=== PATIENT | female | born 1980 | race Caucasian/White ===

== ENCOUNTER 2019-05-25 18:19 | Emergency (ER) | payer OTHER, SELFPAY ==
[2019-05-25 18:56] VITALS: BP 150/97; PULSE 103; RESP 16; TEMP 36.6; O2SAT 99
--- NOTE | 2019-05-25 19:01 | ED.BACK ---
HPI - Back Pain/Injury General Chief Complaint: Back Pain/Injury Stated Complaint: back pain Time Seen by Provider: 05/25/19 19:01 Source: patient and family History of Present Illness HPI Narrative: Patient presents with low back pain. Patient denies any numbness or tingling denies any radiation of pain. Patient states 2 weeks ago she moved and thinks she must have pulled a muscle at that time moving heavy boxes. Patient denies any saddle anesthesia, denies any bowel or bladder problems. Patient is taking ibuprofen for pain with minimal relief. MD elicited complaint: back pain Pertinent past history: prior back pain Similar Symptoms Previously: Yes Related Data Allergies Allergy/AdvReac Type Severity Reaction Status Date / Time No Known Allergies Allergy Unverified 10/21/18 19:42 Review of Systems Review of Systems: Narrative: CONSTITUTIONAL: Denies fever, chills, or sweats. EYES: Denies visual changes, redness, or discharge. ENT: Denies rhinorrhea, congestion, sore throat, or otalgia. CARDIOVASCULAR: Denies chest pain, palpitations, or edema. RESPIRATORY: Denies cough or dyspnea. GASTROINTESTINAL: Denies abdominal pain, nausea, vomiting, or diarrhea. GENITOURINARY: Denies dysuria or hematuria. SKIN: Denies rash or itching. MUSCULOSKELETAL: Denies joint pain, or myalgia. Ice and heat to the area for 20-30 minutes NEUROLOGIC: Denies headache, numbness, or weakness. PSYCHIATRIC: Denies anxiety or depression. All systems reviewed & are unremarkable except as noted in HPI and below PMFSH Comments At time of signature, agree with nursing past medical, surgical, social and family history. There is no relevant family history pertinent to the presenting complaint Exam Narrative: Exam Narrative: GENERAL: Well-appearing, well-nourished, and in no acute distress. HEAD: Normocephalic, atraumatic. EYES: PERRLA and EOMI. ENT: Nares clear, no rhinorrhea or epistaxis. Mucous membranes moist. NECK: Supple. CHEST: Clear to auscultation. No respiratory distress. HEART: Regular rate and rhythm. No murmur heard. Normal peripheral pulses. ABDOMEN: Soft, nontender, nondistended, normal active bowel sounds. EXTREMITIES: Normal range of motion. No edema. SPINE MIDLINE. NO CURVATURE APPARENT. NO NOVERTEBRAL POINT SPECIFIC TENDERNESS. NO DEFORMITY. NO STEP-OFFS. NORMAL LE STRENGTH BILATERALLY. NORMAL LE SENSATION BILATERALLY. ABLE TO WALK ON TOES AND HEELS WITH NORMAL DORSIFLEXION AND PLANTAR FLEXION STRENGTH. NO WEAKNESS OBSERVED WITH GAIT. RIGHT PARASPINAL MUSCLE TENDERNESS. RIGHT SI JOINT TENDERNESS. FLEXION AND EXTENSION ROM NORMAL, ONLY SLIGHT LIMITATION. SKIN: Warm, dry, no rash. NEURO: No focal deficits. Alert and oriented x3. [place] Coma Scale Eye Opening: Spontaneous 4 [place] Coma Scale Motor: Obeys Commands 6 [place] Coma Scale Verbal: Oriented 5 [place] Coma Scale Total 15 Course Vital Signs Vital signs: Vital Signs Temperature 36.6 C 05/25/19 18:56 Pulse Rate 103 H 05/25/19 18:56 Respiratory Rate 16 05/25/19 18:56 Blood Pressure 150/97 H 05/25/19 18:56 Pulse Oximetry 99 05/25/19 18:56 Temperature 36.6 C 05/25/19 18:56 Pulse Rate 103 H 05/25/19 18:56 Respiratory Rate 16 05/25/19 18:56 Blood Pressure 150/97 H 05/25/19 18:56 Pulse Oximetry 99 05/25/19 18:56 Please ALEXIA schedule a followup visit with your personal physician for further evaluation and treatment. Including recheck and discussion of your blood pressure. If your symptoms persist, change or worsen significantly before you can contact your personal physician then please, without delay, go to the emergency department for further evaluation Addressed elevated BP today. Today's blood pressure higher than recommended range. Discussed importance of follow -up with PCP and possible penitentiary effects/cardiovascular events related to HTN. Currently patient denies headache, dizziness, vision changes, CP or shortness of breath. MDM - Back Pain/
== END 2019-05-25 19:10 | disposition home or self-care (01) ==
PROVIDERS: Emergency Provider Nurse Practitioner Family
DX: S39.012A Strain of muscle, fascia and tendon of lower back, initial encounter (principal); X50.0XXA Overexertion from strenuous movement or load, initial encounter
CPT/HCPCS: 99213; G0463